=== PATIENT | female | born 1990 | race Caucasian/White ===

== ENCOUNTER 2018-09-20 05:25 | Emergency (ER) | payer MEDICAID ==
[~2018-09-20] VITALS: Ht 160 cm; Wt 68.9 kg
[2018-09-20 05:37] VITALS: BP 137/83
[2018-09-20] MEDS ORDERED: OXYcodone/APAP 5/325MG TABLET PO ONE (06:00)
[2018-09-20] MEDS ORDERED: ONDANSETRON ODT 4 MG PO ONE (06:00)
[2018-09-20] MEDS ORDERED: ONDANSETRON ODT 4 MG ONE (06:06)
[2018-09-20] MEDS ORDERED: OXYcodone/APAP 5/325MG TABLET ONE (06:07)
== END 2018-09-20 08:04 | disposition home or self-care (01) ==
LOC: ED 06:54
DX: S29.012A Strain of muscle and tendon of back wall of thorax, initial encounter (principal); S00.93XA Contusion of unspecified part of head, initial encounter; V49.88XA Car occupant (driver) (passenger) injured in other specified transport accidents, initial encounter; Y93.89 Activity, other specified; Y92.89 Other specified places as the place of occurrence of the external cause; Y99.8 Other external cause status
CPT/HCPCS: 70450; 72072; 99284; Q0162